=== PATIENT | female | born 1990 | race Caucasian/White ===

== ENCOUNTER 2018-10-25 16:59 | Emergency (ER) | payer BC ==
[2018-10-25 17:38] VITALS: BP 111/82
[2018-10-25] MEDS ORDERED: Albuterol/Ipratropium 3.0-0.5 MG/3 ML Neb Soln NEB ONE (17:39)
--- NOTE | 2018-10-25 17:40 | EDM.PDOC ---
ED HPI GENERAL MEDICAL PROBLEM - General Chief Complaint: Respiratory Problem Stated Complaint: BREATHING PROBLEMS Time Seen by Provider: 10/25/18 17:39 Source of Information: Reports: Patient History Limitations: Reports: No Limitations - History of Present Illness INITIAL COMMENTS - FREE TEXT/NARRATIVE: HISTORY AND PHYSICAL: History of present illness: Patient is a 27-year-old female 35-weeks gestation here with complaint of difficulty breathing. She has a history of allergies and asthma and states recently she has been feeling more short of breath and having more nasal congestion. She uses inhalers at home with little relief of symptoms. She is requesting a nebulizer treatment and hoping to get one for home use. She denies fevers, chills, nausea, vomiting, abdominal pain, vaginal bleeding or discharge. She would also like to have a UA done as she was treated for a UTI recently and wants to make sure she no longer has one. She denies dysuria but states it feels uncomfortable "down there." Review of systems: As per history of present illness and below otherwise all systems reviewed and negative. Past medical history: As per history of present illness and as reviewed below otherwise noncontributory. Surgical history: As per history of present illness and as reviewed below otherwise noncontributory. Social history: No reported history of drug or alcohol abuse. Family history: As per history of present illness and as reviewed below otherwise noncontributory. Physical exam: General: Patient sitting comfortably in no acute distress and nontoxic appearing HEENT: Atraumatic, normocephalic, pupils reactive, negative for conjunctival pallor or scleral icterus, mucous membranes moist, throat clear, neck supple, nontender, trachea midline. No meningeal signs. Lungs: Apical wheezing noted bilaterally, breath sounds equal bilaterally, chest nontender. Heart: S1S2, regular, negative for clicks, rubs, or overt murmur. Abdomen: Gravid abdomen. Soft, nondistended, nontender. Negative for masses or hepatosplenomegaly. Negative for costovertebral tenderness. No rigidity, rebound , guarding. Pelvis: Stable nontender. Genitourinary: Deferred. Rectal: Deferred. Extremities: Atraumatic, negative for cords or calf pain. Neurovascular unremarkable. Neuro: Awake, alert, oriented. Cranial nerves II through XII unremarkable. Cerebellum unremarkable. Motor and sensory unremarkable throughout. Exam nonfocal. Notes: Diagnostics: Influenza Therapeutics: DuoNeb Prescriptions: Nebulizer Albuterol Impression: Asthma exacerbation Plan: 1. Use nebulizer as needed as instructed 2. Follow up with telephone solicitor 3. Return to ED as needed as discussed Definitive disposition and diagnosis as appropriate pending reevaluation and review of above. 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 ED EXAM, GENERAL - Physical Exam Exam: See Below (see dictation) Course - Vital Signs Last Recorded V/S: Last Vital Signs Temp 98.3 F 10/25/18 17:36 Pulse 93 10/25/18 17:36 Resp 18 10/25/18 17:36 BP 111/82 10/25/18 17:36 Pulse Ox 97 10/25/18 17:36 - Orders/Labs/Meds Orders: Active Orders 24 hr Category Date Time Status RT Aerosol Therapy [RC] ASDIRECTED Care 10/25/18 17:39 Active Labs: Laboratory Tests 10/25/18 Range/Units 17:54 Urine Color YELLOW Urine Appearance SLT CLOUDY Urine pH 6.5 (5.0-8.0) Ur Specific [place] 1.010 (1.001-1.035) Urine Protein NEGATIVE (NEGATIVE) mg/dL Urine Glucose (UA) 100 H (NEGATIVE) mg/dL Urine Ketones TRACE H (NEGATIVE) mg/dL Urine Occult Blood NEGATIVE (NEGATIVE) Urine Nitrite NEGATIVE (NEGATIVE) Urine Bilirubin NEGATIVE (NEGATIVE) Urine Urobilinogen 0.2 (<2.0) EU/dL Ur Leukocyte Esterase NEGATIVE (NEGATIVE) Meds: Medications Discontinued Medications Generic Name Dose Route Start Last Admin Trade Name Kevin PRN Reason Stop Dose Admin Albuterol/Ipratropium 3 ml 10/25/18 17:39 10/25/18 18:03 Duoneb 3.0-0.5 Mg/3 Ml NEB 10/25/18 17:40 3 ml ONETIME ONE Administration Departure - Departure Time of Disposition: 18:31 Disposition: Home, Self-Care 01 Condition: Good Clinical Impression: Asthma exacerbation - Discharge Information Prescriptions: RX: Albuterol Sulfate 2.5 mg IH Q6H #20 unit Referrals: PCP,Unknown [Primary Care Provider] - Forms: ED Department Discharge Additional Instructions: The following information is given to patients seen in the emergency department who are being discharged to home. This information is to outline your options for follow-up care. We provide all patients seen in our emergency department with a follow-up referral. The need for follow-up, as well as the timing and circumstances, are variable depending upon the specifics of your emergency department visit. If you don't have a primary care physician on staff, we will provide you with a referral. We always advise you to contact your personal physician following an emergency department visit to inform them of the circumstance of the visit and for follow-up with them and/or the need for any referrals to a consulting specialist. The emergency department will also refer you to a specialist when appropriate. This referral assures that you have the opportunity for follow-up care with a specialist. All of these measure are taken in an effort to provide you with optimal care, which includes your follow-up. Under all circumstances we always encourage you to contact your private physician who remains a resource for coordinating your care. When calling for follow-up care, please make the office aware that this follow-up is from your recent emergency room visit. If for any reason you are refused follow-up, please contact the [facility] Emergency Department at and asked to speak to the emergency department charge nurse. [facility] Primary [facility] - Women[facility] [address] [place] [id number] 1. Use nebulizer as needed as instructed 2. Follow up with telephone solicitor 3. Return to ED as needed as discussed - My Orders Last 24 Hours: My Active Orders 10/25/18 17:39 RT Aerosol Therapy [RC] ASDIRECTED - Assessment/Plan Last 24 Hours: My Active Orders 10/25/18 17:39 RT Aerosol Therapy [RC] ASDIRECTED
== END 2018-10-25 18:52 | disposition home or self-care (01) ==
LOC: MW.ED 16:59
DX: O99.513 Diseases of the respiratory system complicating pregnancy, third trimester (principal); J45.901 Unspecified asthma with (acute) exacerbation; Z3A.35 35 weeks gestation of pregnancy; Z79.899 Other long term (current) drug therapy
CPT/HCPCS: 81003; 87804; 94640; 99283; 99283-25; J7620-GY

== ENCOUNTER 2018-12-04 00:41 | Inpatient (IN) | payer BC ==
[2018-12-04] MEDS ORDERED: Methylergonovine 0.2 MG/1 ML Amp IM PRN (00:51)
[2018-12-04] MEDS ORDERED: Water For Irrigation,Sterile 1,000 ML Container IRR PRN (00:51)
[2018-12-04] MEDS ORDERED: Carboprost Tromethamine 250 MCG/1 ML Amp IM PRN (00:51)
[2018-12-04] MEDS ORDERED: Misoprostol 200 MCG Tab PO PRN (00:51)
[2018-12-04] MEDS ORDERED: Sodium Chloride 0.9% 10 ML Syringe FLUSH PRN (00:51)
[2018-12-04] MEDS ORDERED: Tranexamic Acid 1,000 MG in Sodium Chloride 0.9% 100 ML IV PRN (00:51)
[2018-12-04] MEDS ORDERED: Sodium Chloride 0.9% 10 ML SDV IV PRN (00:51)
[2018-12-04] MEDS ORDERED: Ampicillin 2 GM in Sodium Chloride 0.9% 100 ML IV ONE (00:51)
[2018-12-04] MEDS ORDERED: Ondansetron 4 MG/2 ML SDV IV PRN (00:51)
[2018-12-04] MEDS ORDERED: Terbutaline 1 MG/ML SDV SUBCUT PRN (00:51)
[2018-12-04] MEDS ORDERED: Butorphanol 1 MG/ML SDV IVPUSH PRN (00:51)
[2018-12-04] MEDS ORDERED: Nalbuphine 10 MG/1 ML Vial IVPUSH PRN (00:51)
[2018-12-04] MEDS ORDERED: Lidocaine 1% 50 ML MDV INJECT PRN (00:51)
[2018-12-04] MEDS ORDERED: Misoprostol 25 MCG (1/4 of 100 MCG) Tab VAG PRN ×2 (00:51)
[2018-12-04] MEDS ORDERED: Sodium Chloride 0.9% 2.5 ML Syringe FLUSH PRN (00:51)
[2018-12-04] MEDS ORDERED: Misoprostol 25 MCG (1/4 of 100 MCG) Tab PO ONE (00:55)
[2018-12-04] MEDS ORDERED: Oxytocin/0.9 % Sodium Chloride 30 UNIT/500 ML BAG IV SCH ×2 (01:00)
[2018-12-04] MEDS ORDERED: Lactated Ringers 1,000 ML IV SCH (01:00)
[2018-12-04] MEDS: Ampicillin 1 GM in Sodium Chloride 0.9% 50 ML IV SCH ×2 (05:32)
[2018-12-04] MEDS ORDERED: oxyCODONE 5 MG Tab PO PRN (08:41)
[2018-12-04] MEDS ORDERED: Acetaminophen 500 MG Tab PO PRN (08:41)
[2018-12-04] MEDS ORDERED: Bisacodyl 10 MG Supp RECTAL PRN (08:41)
[2018-12-04] MEDS ORDERED: Docusate Sodium 100 MG Cap PO PRN (08:41)
[2018-12-04] MEDS ORDERED: Lanolin 100% Cream 7 GM Tube TOP PRN (08:41)
[2018-12-04] MEDS ORDERED: Benzocaine/Menthol 20%-0.5% Spray 78 GM Cannister TOP PRN (08:41)
[2018-12-04] MEDS ORDERED: Ibuprofen 400 MG Tab PO PRN (08:41)
[2018-12-04] MEDS: Ibuprofen 800 MG Tab PO PRN ×2 (09:10→19:46)
--- NOTE | 2018-12-04 09:22 | PCM.LDHP ---
L&D History of Present Illness - General Date of Service: 12/04/18 Admit Problem/Dx: Patient Status Order with Admit Dx/Problem 12/04/18 00:51 Patient Status [ADT] Routine 12/04/18 08:41 Patient Status [ADT] Routine Admission Diagnosis/Problem Admission Diagnosis/Problem Source of Information: Patient History Limitations: Reports: No Limitations - History of Present Illness Pain Score: 4 Improves with: Reports: None Worsens with: Reports: None Associated Symptoms: Reports: N - Related Data Allergies/Adverse Reactions: Allergies Allergy/AdvReac Type Severity Reaction Status Date / Time No Known Allergies Allergy Verified 06/28/18 21:14 Home Medications: Home Meds Budesonide [Pulmicort Flexhaler] 180 mcg IH Q12HR 06/28/18 [History] Montelukast [Singulair] 10 mg PO DAILY 06/28/18 [History] Mv-Mn/Iron/FA/Herbal/Digestive [ One Tablet] 1 each PO DAILY 06/28/18 [ History] Albuterol Sulfate 2.5 mg IH Q6H #20 unit 10/25/18 [Rx] Past Medical History - Past Health History Medical/Surgical History: Denies Medical/Surgical History Respiratory History: Reports: Asthma 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 Psychiatric History: Reports: Anxiety, Depression Social & Family History - Family History Family Medical History: Noncontributory - Tobacco Use Smoking Status *Q: Never Smoker Second Hand Smoke Exposure: No - Caffeine Use Caffeine Use: Reports: Soda - Recreational Drug Use Recreational Drug Use: No H&P Review of Systems - Review of Systems: Review Of Systems: See Below General: Reports: No Symptoms HEENT: Reports: No Symptoms Pulmonary: Reports: No Symptoms Cardiovascular: Reports: No Symptoms Gastrointestinal: Reports: No Symptoms Genitourinary: Reports: No Symptoms Musculoskeletal: Reports: No Symptoms Skin: Reports: No Symptoms Psychiatric: Reports: No Symptoms Neurological: Reports: No Symptoms Hematologic/Lymphatic: Reports: No Symptoms Immunologic: Reports: No Symptoms L&D Exam - Exam Exam: See Below - Vital Signs Weight: 90.265 kg - OB Specific Contraction Intensity: Mild to Moderate Movement: Active Heart Tones: Present Presentation: Vertex - Patel Score Patel Score Cervix Position: Midposition Patel Score Consistency: Medium Patel Score Effacement: 51-70% Patel Score Dilation: 1-2 cm Patel Score 's Station: -2 Patel Score Total: 6 - Exam General: Alert, Oriented HEENT: PERRLA, Conjunctiva Clear, EACs Clear, EOMI, Hearing Intact, Mucosa Moist & [place], Nares Patent, Normal Nasal Septum, Posterior Pharynx Clear, TMs Clear Neck: Supple, Trachea Midline Lungs: Clear to Auscultation, Normal Respiratory Effort Cardiovascular: Regular Rate, Regular Rhythm GI/Abdominal Exam: Normal Bowel Sounds, Soft, Non-Tender, No Organomegaly, No Distention, No Abnormal Bruit, No Mass, Pelvis Stable Rectal Exam: Normal Exam, Normal Rectal Tone Genitourinary: Normal external exam, Normal bimanual exam, Normal speculum exam Back Exam: Normal Inspection, Full Range of Motion Extremities: Normal Inspection, Normal Range of Motion, Non-Tender, No Pedal Edema, Normal Capillary Refill Skin: Warm, Dry, Intact Neurological: Cranial Nerves Intact, Reflexes Equal Bilateral Psychiatric: Alert, Normal Affect, Normal Mood - Patient Data Lab Results Last 24 hrs: Laboratory Results - last 24 hr 12/04/18 12/04/18 Range/Units 01:13 01:13 WBC 7.26 (4.0-11.0) K/uL RBC 4.03 L (4.30-5.90) M/uL Hgb 12.1 (12.0-16.0) g/dL Hct 35.9 L (36.0-46.0) % MCV 89.1 (80.0-98.0) fL MCH 30.0 (27.0-32.0) pg MCHC 33.7 (31.0-37.0) g/dL RDW Std Deviation 41.2 (28.0-62.0) fl RDW Coeff of Lety 13 (11.0-15.0) % Plt Count 225 (150-400) K/uL MPV 11.90 (7.40-12.00) fL Blood Type A POSITIVE Antibody Screen NEGATIVE Result Diagrams: 12/04/18 01:13 Problem List Initiated/Reviewed/Updated: Yes Orders Last 24hrs: Active Orders 24 hr Category Date Time Status Patient Status [ADT] Routine ADT 12/04/18 00:51 Active Patient Status [ADT] Routine ADT 12/04/18 08:41 Active Communication Order [RC] ASDIRECTED Care 12/04/18 00:51 Active May Shower [RC] ASDIRECTED Care 12/04/18 00:51 Active May Shower [RC] ASDIRECTED Care 12/04/18 08:41 Active Notify Provider [RC] PRN Care 12/04/18 00:51 Active Oxygen Therapy [RC] ASDIRECTED Care 12/04/18 00:51 Active Up ad [place] [RC] ASDIRECTED Care 12/04/18 00:51 Active Up ad [place] [RC] ASDIRECTED Care 12/04/18 08:41 Active Vital Signs [RC] PER UNIT ROUTINE Care 12/04/18 00:51 Active Vital Signs [RC] PER UNIT ROUTINE Care 12/04/18 08:41 Active Regular Diet [DIET] Diet 12/04/18 Breakfast Active Acetaminophen [Tylenol Extra Strength] Med 12/04/18 08:41 Active 1,000 mg PO Q4H PRN Acetaminophen [Tylenol Extra Strength] Med 12/04/18 08:41 Active 500 mg PO Q4H PRN Ampicillin 1 gm Med 12/04/18 01:00 Active Sodium Chloride 0.9% [Normal Saline] 50 ml IV Q4H Benzocaine/Menthol [Dermoplast Pain Relief 20%-0.5% Med 12/04/18 08:41 Active [place]] 78 gm TOP ASDIRECTED PRN Bisacodyl [Dulcolax] Med 12/04/18 08:41 Active 10 mg RECTAL ONETIME PRN Butorphanol [Stadol] Med 12/04/18 00:51 Active 1 mg IVPUSH Q1H PRN Carboprost Tromethamine [Hemabate DS] Med 12/04/18 00:51 Active 250 mcg IM ASDIRECTED PRN Docusate Sodium [Colace] Med 12/04/18 08:41 Active 100 mg PO BID PRN Ibuprofen [Motrin] Med 12/04/18 08:41 Active 400 mg PO Q4H PRN Ibuprofen [Motrin] Med 12/04/18 08:41 Active 800 mg PO Q6H PRN Lactated Ringers [Ringers, Lactated] 1,000 ml Med 12/04/18 01:00 Active IV ASDIRECTED Lanolin [Lansinoh HPA] Med 12/04/18 08:41 Active See Dose Instructions TOP ASDIRECTED PRN Lidocaine 1% [Xylocaine 1%] Med 12/04/18 00:51 Active 50 ml INJECT ONETIME PRN Methylergonovine [Methergine] Med 12/04/18 00:51 Active 0.2 mg IM ASDIRECTED PRN Nalbuphine [Nubain] Med 12/04/18 00:51 Active 10 mg IVPUSH Q1H PRN Ondansetron [Zofran] Med 12/04/18 00:51 Active 4 mg IV Q6H PRN Oxytocin/0.9 % Sodium Chloride [Oxytocin 30 Unit/500 ML Med 12/04/18 01:00 Active -NS] 30 unit in 500 ml IV TITRATE Oxytocin/0.9 % Sodium Chloride [Oxytocin 30 Unit/500 ML Med 12/04/18 01:00 Active -NS] 30 unit in 500 ml IV TITRATE Sodium Chloride 0.9% [Normal Saline] Med 12/04/18 00:51 Active 10 ml IV ASDIRECTED PRN Sodium Chloride 0.9% [Saline Flush] Med 12/04/18 00:51 Active 10 ml FLUSH ASDIRECTED PRN Sodium Chloride 0.9% [Saline Flush] Med 12/04/18 00:51 Active 2.5 ml FLUSH ASDIRECTED PRN Terbutaline [Brethine] Med 12/04/18 00:51 Active 0.25 mg SUBCUT ASDIRECTED PRN Tranexamic Acid [Cyklokapron] 1,000 mg Med 12/04/18 00:51 Active Sodium Chloride 0.9% [Normal Saline] 100 ml IV ONETIME Water For Irrigation,Sterile [Sterile Water for Med 12/04/18 00:51 Active Irrigation] 1,000 ml IRR ASDIRECTED PRN Witch [place] [Tucks] Med 12/04/18 08:41 Active 1 pad TOP ASDIRECTED PRN miSOPROStol [Cytotec] Med 12/04/18 00:51 Active 200 mcg PO ONETIME PRN miSOPROStol [Cytotec] Med 12/04/18 00:51 Active 25 mcg VAG ONETIME PRN miSOPROStol [Cytotec] Med 12/04/18 00:51 Active 25 mcg VAG Q4H PRN oxyCODONE Med 12/04/18 08:41 Active 5 mg PO Q2H PRN Assess Lochia [WOMSER] Per Unit Routine Ot 12/04/18 08:41 Ordered Assess Uterine Involution [WOMSER] Per Unit Routine Ot 12/04/18 08:41 Ordered Scalp Electrode [WOMSER] Per Unit Routine Ot 12/04/18 00:51 Ordered Medication Administration Instruction [OM.PC] Q3H Oth 12/04/18 01:00 Ordered Peripheral IV Discontinue [OM.PC] Routine Ot 12/04/18 08:41 Ordered Peripheral IV Insertion Adult [OM.PC] Routine Ot 12/04/18 00:51 Ordered Resuscitation Status Routine Resus Stat 12/04/18 00:51 Ordered Medication Orders Acetaminophen (Tylenol Extra Strength) 500 mg PO Q4H PRN PRN Reason: Pain Acetaminophen (Tylenol Extra Strength) 1,000 mg PO Q4H PRN PRN Reason: Pain Benzocaine/Menthol (Dermoplast Pain Relief 20%-0.5% [place]) 78 gm TOP ASDIRECTED PRN PRN Reason: Perineal Comfort Measure Last Admin: 12/04/18 09:11 Dose: 1 canister Bisacodyl (Dulcolax) 10 mg RECTAL ONETIME PRN PRN Reason: Constipation Butorphanol Tartrate (Stadol) 1 mg IVPUSH Q1H PRN PRN Reason: Pain Last Admin: 12/04/18 05:46 Dose: 1 mg Carboprost Tromethamine (Hemabate Ds) 250 mcg IM ASDIRECTED PRN PRN Reason: Post Hemorrhage Docusate Sodium (Colace) 100 mg PO BID PRN PRN Reason: Constipation Last Admin: 12/04/18 09:11 Dose: 100 mg Emollient Ointment (Lansinoh Hpa) 0 gm TOP ASDIRECTED PRN PRN Reason: Sore Nipples Lactated Ringer's (Ringers, Lactated) 1,000 mls @ 150 mls/hr IV ASDIRECTED REGINO Last Admin: 12/04/18 01:20 Dose: 150 mls/hr Oxytocin/Sodium Chloride (Oxytocin 30 Unit/500 Ml-Ns) 30 unit in 500 mls @ 999 mls/hr IV TITRATE [facility] Last Admin: 12/04/18 07:40 Dose: 999 mls/hr Oxytocin/Sodium Chloride (Oxytocin 30 Unit/500 Ml-Ns) 30 unit in 500 mls @ 2 mls/hr IV TITRATE REGINO; Protocol Tranexamic Acid 1,000 mg/ (Sodium Chloride) 110 mls @ 660 mls/hr IV ONETIME PRN PRN Reason: Bleeding Ampicillin Sodium 1 gm/ Sodium (Chloride) 50 mls @ 100 mls/hr IV Q4H REGINO Last Admin: 12/04/18 05:32 Dose: 100 mls/hr Admin: 12/04/18 05:32 Dose: Not Given Ibuprofen (Motrin) 400 mg PO Q4H PRN PRN Reason: Pain Ibuprofen (Motrin) 800 mg PO Q6H PRN PRN Reason: Pain Last Admin: 12/04/18 09:10 Dose: 800 mg Lidocaine HCl (Xylocaine 1%) 50 ml INJECT ONETIME PRN PRN Reason: Laceration repair Methylergonovine Maleate (Methergine) 0.2 mg IM ASDIRECTED PRN PRN Reason: Post Hemorrhage Misoprostol (Cytotec) 200 mcg PO ONETIME PRN PRN Reason: Post Hemorrhage Misoprostol (Cytotec) 25 mcg VAG ONETIME PRN PRN Reason: Cervical Ripening Last Admin: 12/04/18 01:33 Dose: 25 mcg Misoprostol (Cytotec) 25 mcg VAG Q4H PRN PRN Reason: Cervical Ripening Nalbuphine HCl (Nubain) 10 mg IVPUSH Q1H PRN PRN Reason: Pain (severe 7-10) Ondansetron HCl (Zofran) 4 mg IV Q6H PRN PRN Reason: Nausea/Vomiting Oxycodone HCl (Oxycodone) 5 mg PO Q2H PRN PRN Reason: Pain Sodium Chloride (Saline Flush) 10 ml FLUSH ASDIRECTED PRN PRN Reason: Keep Vein Open Sodium Chloride (Saline Flush) 2.5 ml FLUSH ASDIRECTED PRN PRN Reason: Keep Vein Open Sodium Chloride (Normal Saline) 10 ml IV ASDIRECTED PRN PRN Reason: IV Use Sterile Water (Sterile Water For Irrigation) 1,000 ml IRR ASDIRECTED PRN PRN Reason: delivery Terbutaline Sulfate (Brethine) 0.25 mg SUBCUT ASDIRECTED PRN PRN Reason: Tacysystole [place] (Tucks) 1 pad TOP ASDIRECTED PRN PRN Reason: comfort care
[2018-12-04] MEDS: Acetaminophen 500 MG Tab PO PRN ×2 (13:11→23:04)
--- NOTE | 2018-12-04 16:06 | OR ---
SURGEON: Kishan Vazquez MD DATE OF PROCEDURE: Ms. Easton is a 27-year-old patient. She is para 1-0-0-1. She is followed in our clinic. Primarily, she is followed by me. The patient is 39 plus weeks. She is admitted for elective induction, and she was induced with Cytotec. She required one dose of Cytotec since she established in active labor. Her GBS status was negative. The patient progressed nicely and she was able to accomplish normal spontaneous vaginal delivery of a male fetus. He is weighing 813 and score of 8 and 9. The placenta delivered spontaneous, complete, and intact. There was no episiotomy. There is no tear. There is no vaginal laceration. heart rate was category 1 through the entire process of labor. Estimated blood loss was 250 to 300 mL. There was no complication. KIMBERLI / YURI /[id number]
[2018-12-04] MEDS: Witch Hazel Medicated Pads 40/Jar TOP PRN (19:53)
[2018-12-05] MEDS: Ibuprofen 800 MG Tab PO PRN ×2 (03:44→13:13)
[2018-12-05 07:39] VITALS: BP 98/65
--- NOTE | 2018-12-05 10:37 | PCM.DCSUM1 ---
Discharge Summary - Hospital Course Diagnosis: Stroke: No - Discharge Data Discharge Date: 12/05/18 Discharge Disposition: Home, Self-Care 01 Condition: Good - Patient Instructions Diet: Usual Diet as Tolerated Activity: As Tolerated Driving: Do Not Drive Showering/Bathing: May Shower Notify Provider of: Fever, Increased Pain, Nausea and/or Vomiting - Discharge Plan Home Medications: Home Meds Budesonide [Pulmicort Flexhaler] 180 mcg IH Q12HR 06/28/18 [History] Montelukast [Singulair] 10 mg PO DAILY 06/28/18 [History] Mv-Mn/Iron/FA/Herbal/Digestive [ One Tablet] 1 each PO DAILY 06/28/18 [ History] Albuterol Sulfate 2.5 mg IH Q6H #20 unit 10/25/18 [Rx] Referrals: [facility] [Outside] Kishan Vazquez MD [Physician] - 01/11/19 3:00 pm - Discharge Summary/Plan Comment DC Time >30 min.: Yes - General Info Date of Service: 12/05/18 Functional Status: Reports: Pain Controlled - Review of Systems General: Reports: No Symptoms HEENT: Reports: No Symptoms Pulmonary: Reports: No Symptoms Cardiovascular: Reports: No Symptoms Gastrointestinal: Reports: No Symptoms Genitourinary: Reports: No Symptoms Musculoskeletal: Reports: No Symptoms Skin: Reports: No Symptoms Neurological: Reports: No Symptoms Psychiatric: Reports: No Symptoms - Patient Data Vitals - Most Recent: Last Vital Signs Temp 36.7 C 12/05/18 07:37 Pulse 66 12/05/18 07:37 Resp 15 12/05/18 07:37 BP 98/65 12/05/18 07:37 Pulse Ox 97 12/05/18 07:37 Weight - Most Recent: 90.265 kg Med Orders - Current: Current Medications Acetaminophen (Tylenol Extra Strength) 500 mg PO Q4H PRN PRN Reason: Pain Acetaminophen (Tylenol Extra Strength) 1,000 mg PO Q4H PRN PRN Reason: Pain Last Admin: 12/04/18 23:04 Dose: 1,000 mg Benzocaine/Menthol (Dermoplast Pain Relief 20%-0.5% [place]) 78 gm TOP ASDIRECTED PRN PRN Reason: Perineal Comfort Measure Last Admin: 12/04/18 09:11 Dose: 1 canister Bisacodyl (Dulcolax) 10 mg RECTAL ONETIME PRN PRN Reason: Constipation Butorphanol Tartrate (Stadol) 1 mg IVPUSH Q1H PRN PRN Reason: Pain Last Admin: 12/04/18 05:46 Dose: 1 mg Carboprost Tromethamine (Hemabate Ds) 250 mcg IM ASDIRECTED PRN PRN Reason: Post Hemorrhage Docusate Sodium (Colace) 100 mg PO BID PRN PRN Reason: Constipation Last Admin: 12/04/18 09:11 Dose: 100 mg Emollient Ointment (Lansinoh Hpa) 0 gm TOP ASDIRECTED PRN PRN Reason: Sore Nipples Lactated Ringer's (Ringers, Lactated) 1,000 mls @ 150 mls/hr IV ASDIRECTED REGINO Last Admin: 12/04/18 01:20 Dose: 150 mls/hr Oxytocin/Sodium Chloride (Oxytocin 30 Unit/500 Ml-Ns) 30 unit in 500 mls @ 999 mls/hr IV TITRATE REGINO Last Admin: 12/04/18 07:40 Dose: 999 mls/hr Oxytocin/Sodium Chloride (Oxytocin 30 Unit/500 Ml-Ns) 30 unit in 500 mls @ 2 mls/hr IV TITRATE REGINO; Protocol Tranexamic Acid 1,000 mg/ (Sodium Chloride) 110 mls @ 660 mls/hr IV ONETIME PRN PRN Reason: Bleeding Ampicillin Sodium 1 gm/ Sodium (Chloride) 50 mls @ 100 mls/hr IV Q4H REGINO Last Admin: 12/04/18 05:32 Dose: 100 mls/hr Ibuprofen (Motrin) 400 mg PO Q4H PRN PRN Reason: Pain Ibuprofen (Motrin) 800 mg PO Q6H PRN PRN Reason: Pain Last Admin: 12/05/18 03:44 Dose: 800 mg Lidocaine HCl (Xylocaine 1%) 50 ml INJECT ONETIME PRN PRN Reason: Laceration repair Methylergonovine Maleate (Methergine) 0.2 mg IM ASDIRECTED PRN PRN Reason: Post Hemorrhage Misoprostol (Cytotec) 200 mcg PO ONETIME PRN PRN Reason: Post Hemorrhage Misoprostol (Cytotec) 25 mcg VAG ONETIME PRN PRN Reason: Cervical Ripening Last Admin: 12/04/18 01:33 Dose: 25 mcg Misoprostol (Cytotec) 25 mcg VAG Q4H PRN PRN Reason: Cervical Ripening Nalbuphine HCl (Nubain) 10 mg IVPUSH Q1H PRN PRN Reason: Pain (severe 7-10) Ondansetron HCl (Zofran) 4 mg IV Q6H PRN PRN Reason: Nausea/Vomiting Oxycodone HCl (Oxycodone) 5 mg PO Q2H PRN PRN Reason: Pain Sodium Chloride (Saline Flush) 10 ml FLUSH ASDIRECTED PRN PRN Reason: Keep Vein Open Sodium Chloride (Saline Flush) 2.5 ml FLUSH ASDIRECTED PRN PRN Reason: Keep Vein Open Sodium Chloride (Normal Saline) 10 ml IV ASDIRECTED PRN PRN Reason: IV Use Sterile Water (Sterile Water For Irrigation) 1,000 ml IRR ASDIRECTED PRN PRN Reason: delivery Terbutaline Sulfate (Brethine) 0.25 mg SUBCUT ASDIRECTED PRN PRN Reason: Tacysystole [place] (Tucks) 1 pad TOP ASDIRECTED PRN PRN Reason: comfort care Last Admin: 12/04/18 19:53 Dose: 1 tub Discontinued Medications Ampicillin Sodium 2 gm/ Sodium (Chloride) 100 mls @ 200 mls/hr IV ONETIME ONE Stop: 12/04/18 01:20 Last Admin: 12/04/18 01:32 Dose: 200 mls/hr Misoprostol (Cytotec) 25 mcg PO ONETIME ONE Stop: 12/04/18 00:56 Last Admin: 12/04/18 01:32 Dose: 25 mcg - Exam General: Reports: Alert, Oriented HEENT: Reports: Pupils Equal, Pupils Reactive, EOMI, Mucous Membr. Moist/[place] Neck: Reports: Supple Lungs: Reports: Clear to Auscultation, Normal Respiratory Effort Cardiovascular: Reports: Regular Rate, Regular Rhythm GI/Abdominal Exam: Normal Bowel Sounds, Soft, Non-Tender, No Organomegaly, No Distention, No Abnormal Bruit, No Mass, Pelvis Stable (Female) Exam: Normal External Exam, Normal Speculum Exam, Normal Bimanual Exam Rectal (Female) Exam: Normal Exam, Normal Rectal Tone Back Exam: Reports: Normal Inspection, Full Range of Motion Extremities: Normal Inspection, Normal Range of Motion, Non-Tender, No Pedal Edema, Normal Capillary Refill Skin: Reports: Warm, Dry, Intact Wound/Incisions: Reports: Healing Well Neurological: Reports: No New Focal Deficit Psy/Mental Status: Reports: Alert, Normal Affect, Normal Mood
[2018-12-05] MEDS: Witch Hazel Medicated Pads 40/Jar TOP PRN (13:12)
== END 2018-12-05 15:55 | disposition home or self-care (01) | DRG 560 ==
LOC: MW.OBCHECK 00:41 → MW.OB 00:46 → OBSVTOIN 07:53 → MW.OB 07:53
PROVIDERS: ADMIT Obstetrics & Gynecology; ATTEND Obstetrics & Gynecology
PROC: 10E0XZZ Delivery of Products of Conception, External Approach (ICD-10-PCS; principal; 2018-12-04)
PROC: 3E0P7VZ Introduction of Hormone into Female Reproductive, Via Natural or Artificial Opening (ICD-10-PCS; principal; 2018-12-04)
DX: O99.52 Diseases of the respiratory system complicating childbirth (principal); Z37.0 Single live birth; J45.909 Unspecified asthma, uncomplicated; O99.344 Other mental disorders complicating childbirth; F41.9 Anxiety disorder, unspecified; F32.9 Major depressive disorder, single episode, unspecified; Z79.899 Other long term (current) drug therapy
CPT/HCPCS: 36415; 59025; 59409; 85027; 86850; 86900; 86901; A9270-GY; J0290; J0595; J2590; J7030; J7050; J7120

== ENCOUNTER 2023-05-22 16:19 | Emergency (ER) | payer MEDICAID ==
[2023-05-22 16:39] LABS: APPEARANCE,URINE CLEAR; BILIRUBIN,URINE NEGATIVE (NEGATIVE); COLOR,URINE YELLOW; GLUCOSE,URINE NEGATIVE (NEGATIVE); KETONES,URINE NEGATIVE (NEGATIVE); LEUKOCYTE ESTERASE,URINE NEGATIVE (NEGATIVE); NITRITE,URINE NEGATIVE (NEGATIVE); OCCULT BLOOD,URINE MODERATE (NEGATIVE); PH,URINE 6.5 (5.0-8.0); PROTEIN,URINE NEGATIVE (NEGATIVE); UROBILINOGEN,URINE 0.2 EU/dL (<2.0)
[2023-05-22 16:47] LABS: SQUAMOUS EPITHELIAL CELLS,UR FEW; WBC,URINE 0-2 (0-5/HPF)
[2023-05-22 16:48] LABS: BACTERIA,URINE RARE (NEGATIVE); MUCUS,URINE LIGHT (NONE-MOD)
[2023-05-22 16:50] LABS: BASOPHILS ABSOLUTE AUTO 0.01 K/uL (0.00-0.20); BASOPHILS PERCENT AUTO 0.2 % (0.0-1.0); EOSINOPHILS ABSOLUTE AUTO 0.04 K/uL (0.00-0.45); EOSINOPHILS PERCENT AUTO 0.7 % (0.0-6.0); IMMATURE GRAN ABSOLUTE AUTO 0.02 K/uL (0.00-0.05); IMMATURE GRAN PERCENT AUTO 0.4 % (0.0-0.4); LYMPHOCYTES ABSOLUTE AUTO 1.95 K/uL (1.00-4.80); LYMPHOCYTES PERCENT AUTO 35.6 % (24.0-44.0); MEAN CORPUSCULAR HEMOGLOBIN 30.5 pg (28.0-32.0); MEAN CORPUSCULAR HGB CONC 34.3 g/dL (32.0-36.0); MEAN CORPUSCULAR VOLUME 89.1 fL (83.0-99.0); MONOCYTES ABSOLUTE AUTO 0.34 K/uL (0.00-0.80); MONOCYTES PERCENT AUTO 6.2 % (0.0-8.0); NEUTROPHILS ABSOLUTE AUTO 3.12 K/uL (1.80-7.70); NEUTROPHILS PERCENT AUTO 56.9 % (41.0-71.0); PLATELET COUNT,PLT 276 K/uL (150-400); RED BLOOD CELL COUNT 3.93 M/uL (4.10-5.30); WHITE BLOOD CELL COUNT,WBC 5.48 K/uL (3.9-11.3)
[2023-05-22 17:38] VITALS: BP 107/71; PULSE 64
[2023-05-22 17:47] LABS: A/G RATIO 0.9 (0.9-1.6); ALBUMIN 3.8 g/dL (3.4-5.0); BILIRUBIN TOTAL 0.2 mg/dL (0.2-1.0); CALCIUM 9.4 mg/dL (8.5-10.1); CARBON DIOXIDE,CO2 27.1 mmol/L (21.0-32.0); CREATININE 0.7 mg/dL (0.6-1.0); EST CRCL DRUG DOSING (CG) 119.46 mL/min; POTASSIUM,K 3.8 mmol/L (3.5-5.1); PROTEIN TOTAL,TP 7.9 g/dL (6.4-8.2)
== END 2023-05-22 19:39 | disposition home or self-care (01) ==
LOC: MW.ED 16:19
DX: O03.9 Complete or unspecified spontaneous abortion without complication (principal); Z79.899 Other long term (current) drug therapy
CPT/HCPCS: 36415; 76801; 76801-26; 80053; 81001; 81025; 84702; 85025; 86850; 86900; 86901; 99283; 99284

== ENCOUNTER 2024-08-11 12:13 | Emergency (ER) | payer MEDICAID ==
[2024-08-11 12:34] VITALS: PULSE 72
[2024-08-11] MEDS: Sodium Chloride 0.9% 1,000 ML IV ONE (12:41)
[2024-08-11 12:47] LABS: BASOPHILS ABSOLUTE AUTO 0.01 K/uL (0.00-0.20); BASOPHILS PERCENT AUTO 0.2 % (0.0-1.0); EOSINOPHILS ABSOLUTE AUTO 0.03 K/uL (0.00-0.45); EOSINOPHILS PERCENT AUTO 0.6 % (0.0-6.0); HEMOGLOBIN 13.9 g/dL (12.0-16.0); IMMATURE GRAN ABSOLUTE AUTO 0.01 K/uL (0.00-0.05); IMMATURE GRAN PERCENT AUTO 0.2 % (0.0-0.4); LYMPHOCYTES ABSOLUTE AUTO 1.84 K/uL (1.00-4.80); LYMPHOCYTES PERCENT AUTO 37.6 % (24.0-44.0); MEAN CORPUSCULAR HEMOGLOBIN 30.6 pg (28.0-32.0); MEAN CORPUSCULAR HGB CONC 33.9 g/dL (32.0-36.0); MEAN CORPUSCULAR VOLUME 90.3 fL (83.0-99.0); MEAN PLATELET VOLUME 10.1 fL (9.4-12.3); MONOCYTES ABSOLUTE AUTO 0.39 K/uL (0.00-0.80); NEUTROPHILS ABSOLUTE AUTO 2.62 K/uL (1.80-7.70); NEUTROPHILS PERCENT AUTO 53.4 % (41.0-71.0); PLATELET COUNT,PLT 258 K/uL (150-400); RED BLOOD CELL COUNT 4.54 M/uL (4.10-5.30)
[2024-08-11 13:19] LABS: ALANINE AMINOTRANSFERASE,ALT 35 IU/L (14-63); ALBUMIN 3.9 g/dL (3.4-5.0); ALKALINE PHOSPHATASE 61 U/L (46-116); ASPARTATE AMNIOTRANSFERASE,AST 22 IU/L (15-37); BILIRUBIN TOTAL 0.7 mg/dL (0.2-1.0); BLOOD UREA NITROGEN,BUN 15 mg/dL (7.0-18.0); CALCIUM 9.3 mg/dL (8.5-10.1); CARBON DIOXIDE,CO2 27.6 mmol/L (21.0-32.0); CHLORIDE,CL 103 mmol/L (98-107); CREATININE 0.9 mg/dL (0.6-1.0); EST CRCL DRUG DOSING (CG) 92.05 mL/min; ESTIMATED GFR 86 mL/min (>60); GLUCOSE RANDOM 89 mg/dL (74-106); POTASSIUM,K 4.6 mmol/L (3.5-5.1); PROTEIN TOTAL,TP 7.9 g/dL (6.4-8.2); SODIUM,NA 138 mmol/L (136-145)
[2024-08-11 13:48] VITALS: BP 107/65
== END 2024-08-11 13:46 | disposition home or self-care (01) ==
LOC: MW.ED 12:13
DX: R55 Syncope and collapse (principal); J45.909 Unspecified asthma, uncomplicated; Z79.51 Long term (current) use of inhaled steroids; Z79.899 Other long term (current) drug therapy; Z75.8 Other problems related to medical facilities and other health care
CPT/HCPCS: 36415; 70450; 71045; 80053; 84484; 84703; 85025; 85379; 87428; 93005; 96360; 99285; J7030